=== PATIENT | male | born 1970 | race American Indian/Alaskan Native ===

== ENCOUNTER 2017-07-11 04:39 | Inpatient (IN) | payer OTHER ==
[2017-07-11] MEDS ORDERED: CATAPRES ONE (04:55)
[2017-07-11] MEDS ORDERED: CATAPRES PO ONE (04:57)
[2017-07-11 05:43] LABS: INR 0.93 (0.87-1.13); Partial Thromboplastin Time 25.2 Sec. (24.2-36.6)
[2017-07-11 05:59] LABS: Anion Gap TNR mmol/L; BUN/Creatinine Ratio TNR; Blood Urea Nitrogen TNR mg/dL (9-20); Calcium TNR mg/dL (8.4-10.2); Carbon Dioxide TNR mmol/L (22-30); Chloride TNR mmol/L (98-107); Glucose TNR mg/dL (75-100); Potassium TNR mmol/L (3.6-5.0); Sodium TNR mmol/L (137-145)
[2017-07-11 06:11] LABS: Hemoglobin 14.5 gm/dl (11.8-15.2); Mean Corpuscular HGB Conc 33 % (32-34); Mean Corpuscular Hemoglobin 27 pg (28-32); Mean Corpuscular Volume 82 fl (84-94); Platelet Count 181 K/mm3 (140-440); Red Blood Count 5.39 M/mm3 (3.65-5.03); Red Cell Distribution Width 14.5 % (13.2-15.2); White Blood Count 12.3 K/mm3 (4.5-11.0)
[2017-07-11 06:15] LABS: Basophils % (Auto) 0.5 % (0.0-1.8); Diff Status Complete; Eosinophils % (Auto) 2.8 % (0.0-4.3)
[2017-07-11 06:58] LABS: Anion Gap 19 mmol/L; BUN/Creatinine Ratio 12.22; Blood Urea Nitrogen 11 mg/dL (9-20); Calcium 8.9 mg/dL (8.4-10.2); Carbon Dioxide 27 mmol/L (22-30); Chloride 98.3 mmol/L (98-107); Glucose 160 mg/dL (75-100); Potassium 3.4 mmol/L (3.6-5.0); Sodium 141 mmol/L (137-145)
[2017-07-11] MEDS ORDERED: AFRIN NS ONE (07:39)
--- NOTE | 2017-07-11 07:42 | Emergency Department Report ---
ED ENT HPI - General Chief complaint: High BP Stated complaint: NOSEBLEED Time Seen by Provider: 07/11/17 07:32 Source: patient, family Mode of arrival: Ambulatory Limitations: No Limitations - History of Present Illness Initial comments: 26-year-old male with a past medical history hypertension presents to the hospital with complaints of epistaxis 3 hours. Bleeding from the right nostril. Patient has been noncompliant with his blood pressure medication times one year due to absence of insurance. He has been taking aspirin 81 mg and garlic daily. He denies any pain or recent trauma event. - Related Data Home Medications Medication Instructions Recorded Confirmed Last Taken Aspirin [Aspirin BABY CHEW TAB] 81 mg PO QDAY 07/11/17 07/11/17 07/10/17 Allergies Allergy/AdvReac Type Severity Reaction Status Date / Time No Known Allergies Allergy Verified 07/11/17 04:55 ED Dental HPI - General Chief complaint: High BP Stated complaint: NOSEBLEED Time Seen by Provider: 07/11/17 07:32 Source: patient, family Mode of arrival: Ambulatory Limitations: No Limitations - Related Data Home Medications Medication Instructions Recorded Confirmed Last Taken Aspirin [Aspirin BABY CHEW TAB] 81 mg PO QDAY 07/11/17 07/11/17 07/10/17 Allergies Allergy/AdvReac Type Severity Reaction Status Date / Time No Known Allergies Allergy Verified 07/11/17 04:55 ED Review of Systems ROS: Stated complaint: NOSEBLEED Other details as noted in HPI Comment: All other systems reviewed and negative Other: Constitutional: No fevers chills Eyes: No eye pain visual changes ENT: as per hpi Neck: Denies pain Respiratory: Denies cough wheezing shortness of breath Cardiovascular: Denies chest pain, palpitations, syncope GI: Denies abdominal pain, nausea, vomiting, diarrhea : Denies dysuria, urinary frequency, or urgency Musculoskeletal: Denies back pain, joint swelling Skin: Denies rash, lesions, erythema Neurologic: Denies headache, numbness, weakness Psychiatric: Denies suicidal ideation, hallucinations ED Past Medical Hx - Past Medical History Previous Medical History?: Yes Hx Hypertension: Yes Additional medical history: Obesity - Surgical History Past Surgical History?: No - Social History Smoking Status: Never Smoker Substance Use Type: None - Medications Home Medications: Home Medications Medication Instructions Recorded Confirmed Last Taken Type Aspirin [Aspirin BABY CHEW TAB] 81 mg PO QDAY 07/11/17 07/11/17 07/10/17 History ED Physical Exam - General Limitations: No Limitations - Other Other exam information: General: No limitations, patient is alert in no acute distress Head exam: Atraumatic, normocephalic Eyes exam: Normal appearance ENT: Active bleeding from right nostril Neck exam: Normal inspection, full range of motion, no meningismus nontender Respiratory exam: Clear to auscultation bilateral, no wheezes, rales, crackles Cardiovascular: Normal rate and rhythm, normal heart sounds Abdomen: Soft, nondistended, and nontender, with normal bowel sounds, no rebound, or guarding Extremity: Full range of motion normal inspection no deformity Back: Normal Inspection, full range of motion, no tenderness Neurologic: Alert, oriented x3, cranial nerves intact, no motor or sensory deficit Psychiatric: normal affect, normal mood Skin: Warm, dry, intact ED Course Vital Signs 07/11/17 07/11/17 07/11/17 04:56 05:33 05:35 Temperature 98.6 F Pulse Rate 130 H 130 H 111 H Respiratory 18 18 Rate Blood Pressure 217/124 217/124 184/116 O2 Sat by Pulse 97 99 Oximetry 07/11/17 07/11/17 07/11/17 08:19 08:40 08:50 Temperature 98.3 F Pulse Rate 127 H 117 H 85 Respiratory 19 18 18 Rate Blood Pressure 188/111 196/121 83/36 O2 Sat by Pulse 99 97 97 Oximetry 07/11/17 07/11/17 07/11/17 09:04 10:11 11:49 Temperature Pulse Rate 94 H 75 97 H Respiratory 17 Rate Blood Pressure 101/66 114/68 O2 Sat by Pulse 97 Oximetry - Reevaluation(s) Reevaluation #1: 07/11/17 07:42 Received clonidine 0.2 mg of 5:33 AM 07/11/17 09:02 After packing patient's blood pressure was 192/122 despite receiving clonidine graded 2 hours prior. Librium 10 mg IV. Patient's blood pressure then dropped to 106 systolic and a heart rate in the 80s. Patient complain of nausea and therefore Zofran ordered. Nurse brought to my attention and patient is diaphoretic and pressure dropped down to the 80s. Patient's head placed from a 90 to 45 angle with nasal packing in place. Patient's pressure then increased to 96 systolic. 1 L normal saline bolus ordered. 07/11/17 12:14 BP remained stable after 1 L normal saline. Systolic greater than 106. Patient was feeling better. Bleeding improved. - Consultations Consultation #1: 07/11/17 12:15 Cardiology (shea and attending) and informed and came by bedside to evaluate patient. Given EKG changes recommend admission, off, and repeat enzymes - Procedure Description Procedures done: 1 dose of Afrin sprayed to the right nostril. 7.5 cm rapid rhino Activated in sterile water for 30 seconds then placed in the right nare. Slowly inflatated with 14 mL of air. Bleeding improved. Secured to face with tape ED Medical Decision Making - Lab Data Result diagrams: 07/11/17 05:50 07/11/17 06:05 Lab Results 07/11/17 07/11/17 07/11/17 Range/Units 05:07 05:07 05:50 WBC 12.3 H (4.5-11.0) K/mm3 RBC 5.39 H (3.65-5.03) M/mm3 Hgb 14.5 (11.8-15.2) gm/dl Hct 44.0 (35.5-45.6) % MCV 82 L (84-94) fl MCH 27 L (28-32) pg MCHC 33 (32-34) % RDW 14.5 (13.2-15.2) % Plt Count 181 (140-440) K/mm3 Lymph % (Auto) 17.2 (13.4-35.0) % [place] % (Auto) 9.4 H (0.0-7.3) % Eos % (Auto) 2.8 (0.0-4.3) % Baso % (Auto) 0.5 (0.0-1.8) % Lymph # 2.1 (1.2-5.4) K/mm3 [place] # 1.2 H (0.0-0.8) K/mm3 Eos # 0.3 (0.0-0.4) K/mm3 Baso # 0.1 (0.0-0.1) K/mm3 Add Manual Diff Complete Seg Neutrophils % 70.1 H (40.0-70.0) % Seg Neutrophils # 8.6 H (1.8-7.7) K/mm3 PT 12.4 (12.2-14.9) Sec. INR 0.93 (0.87-1.13) APTT 25.2 (24.2-36.6) Sec. Sodium TNR Potassium TNR Chloride TNR Carbon Dioxide TNR Anion Gap TNR BUN TNR Creatinine TNR Estimated GFR TNR BUN/Creatinine Ratio TNR Glucose TNR Calcium TNR Troponin T TNR 07/11/17 07/11/17 07/11/17 Range/Units 06:05 08:02 10:36 WBC (4.5-11.0) K/mm3 RBC (3.65-5.03) M/mm3 Hgb (11.8-15.2) gm/dl Hct (35.5-45.6) % MCV (84-94) fl MCH (28-32) pg MCHC (32-34) % RDW (13.2-15.2) % Plt Count (140-440) K/mm3 Lymph % (Auto) (13.4-35.0) % [place] % (Auto) (0.0-7.3) % Eos % (Auto) (0.0-4.3) % Baso % (Auto) (0.0-1.8) % Lymph # (1.2-5.4) K/mm3 [place] # (0.0-0.8) K/mm3 Eos # (0.0-0.4) K/mm3 Baso # (0.0-0.1) K/mm3 Add Manual Diff Seg Neutrophils % (40.0-70.0) % Seg Neutrophils # (1.8-7.7) K/mm3 PT (12.2-14.9) Sec. INR (0.87-1.13) APTT (24.2-36.6) Sec. Sodium 141 Potassium 3.4 L Chloride 98.3 Carbon Dioxide 27 Anion Gap 19 BUN 11 Creatinine 0.9 Estimated GFR > 60 BUN/Creatinine Ratio 12.22 Glucose 160 H Calcium 8.9 Troponin T < 0.010 < 0.010 - EKG Data -: EKG Interpreted by Me (sinus rate 124, flat ant lat t waves, no stem) - EKG Data 07/11/17 12:21 repeat ekg:sinus rate 99 inf lat t wave inversions - Medical Decision Making will admit for obs given ekg changes cardiolgy consulted rec monitoring and repeat enzymes pt will need continued bp managment pt will need to hold asa and garlic pt will need abx daily while he has nasal packing packing needs to be in place for 48-72 hrs - Differential Diagnosis epistaxis, coagulopathy, hypertensive emergency Critical Care Time: No Critical care attestation.: If time is entered above; I have spent that time in minutes in the direct care of this critically ill patient, excluding procedure time. ED Disposition Clinical Impression: Epistaxis, Uncontrolled hypertension, Noncompliance with medication regimen, Acute electrocardiogram changes Disposition: OP ADMIT IP TO THIS HOSP Is pt being admited?: Yes Condition: Stable Time of Disposition: 12:23 (Dr hummel/hosp)
[2017-07-11] MEDS ORDERED: WATER FOR IRRIG STERILE IR ONE (08:00)
[2017-07-11] MEDS ORDERED: WATER FOR INJ (PF) 10 ML ONE (08:11)
[2017-07-11] MEDS ORDERED: NORMODYNE IV ONE (08:32)
[2017-07-11] MEDS ORDERED: ZOFRAN IV ONE (08:51)
[2017-07-11] MEDS ORDERED: NACL 0.9% 1000 ML 1,000 ML ONE (09:01)
[2017-07-11] MEDS ORDERED: NACL 0.9% 1000 ML 1,000 ML IV ONE (09:02)
--- NOTE | 2017-07-11 12:13 | History and Physical Report ---
History of Present Illness Chief complaint: My nose is bleeding History of present illness: 46 YO Male with HTN, Medication Noncompliance Obesity presents to ED for evaluation. Pt states that he has experienced "nose bleeding' from the right nostril for the past 3 hours, with no improvement in symptoms. Pt denies HUGHES, fever, chills, CP, Palpitations, NVD, Seizures, Trauma, or recent ill contacts. Pt seen and evaluated in ED and found and found to have blood pressure of 217/ 124. Pt treated in ED with placement of rhino-rocket with improvement in epistaxis. 2 Past History Past Medical History: hypertension Past Surgical History: No surgical history, Other (reviewed) Social history: single. denies: smoking, alcohol abuse, prescription drug abuse Family history: hypertension Medications and Allergies Allergies Allergy/AdvReac Type Severity Reaction Status Date / Time No Known Allergies Allergy Verified 07/11/17 04:55 Home Medications Medication Instructions Recorded Confirmed Last Taken Type Aspirin [Aspirin BABY CHEW TAB] 81 mg PO QDAY 07/11/17 07/11/17 07/10/17 History Review of Systems Constitutional: other (nose bleeding), no weight loss, no weight gain, no fever Ears, nose, mouth and throat: no ear pain, no ear discharge, no tinnitis Cardiovascular: no chest pain, no orthopnea, no palpitations Respiratory: no cough, no cough with sputum, no excessive sputum, no hemoptysis Gastrointestinal: no abdominal pain, no nausea, no vomiting, no diarrhea Genitourinary Male: no dysuria, no flank pain, no discharge, no urinary frequency Rectal: no pain, no incontinence, no bleeding Musculoskeletal: no neck stiffness, no neck pain, no shooting arm pain, no arm numbness/tingling Integumentary: no rash, no pruritis, no redness Neurological: no head injury, no transient paralysis, no paralysis, no parathesias, no numbness, no tingling, no migraines, no aphasia, no confusion Psychiatric: no anxiety, no memory loss, no change in sleep habits, no sleep disturbances, no hypersomnia, no change in appetite, no change in libido Endocrine: no cold intolerance, no polyphagia, no polydipsia, no nocturia, no excessive sweating Hematologic/Lymphatic: no easy bruising, no easy bleeding Allergic/Immunologic: no urticaria, no allergic rhinitis, no wheezing Exam - Constitutional Vitals: Temp Pulse Resp BP Pulse Ox 98.3 F 97 H 17 114/68 97 07/11/17 08:19 07/11/17 11:49 07/11/17 11:49 07/11/17 11:49 07/11/17 11:49 General appearance: Present: mild distress, obese - EENT Eyes: Present: PERRL ENT: other (epistaxis) - Neck Neck: Present: supple, normal ROM - Respiratory Respiratory effort: normal Respiratory: bilateral: CTA - Cardiovascular Heart Sounds: Present: S1 & S2. Absent: rub, click - Extremities Extremities: pulses symmetrical, No edema Peripheral Pulses: within normal limits - Abdominal General gastrointestinal: Present: soft, non-tender, non-distended, normal bowel sounds Male genitourinary: Present: normal - Integumentary Integumentary: Present: clear, warm, dry - Musculoskeletal Musculoskeletal: gait normal, strength equal bilaterally - Psychiatric Psychiatric: appropriate mood/affect, intact judgment & insight - Neurologic Neurologic: CNII-XII intact, moves all extremities Results - Labs CBC & Chem 7: 07/11/17 14:36 07/11/17 14:36 Labs: Abnormal lab results 07/11/17 07/11/17 Range/Units 05:50 06:05 WBC 12.3 H (4.5-11.0) K/mm3 RBC 5.39 H (3.65-5.03) M/mm3 MCV 82 L (84-94) fl MCH 27 L (28-32) pg [place] % (Auto) 9.4 H (0.0-7.3) % [place] # 1.2 H (0.0-0.8) K/mm3 Seg Neutrophils % 70.1 H (40.0-70.0) % Seg Neutrophils # 8.6 H (1.8-7.7) K/mm3 Potassium 3.4 L (3.6-5.0) mmol/L Glucose 160 H (75-100) mg/dL Assessment and Plan - Patient Problems (1) Uncontrolled hypertension Current Visit: Yes Status: Acute Plan to address problem: Hydralazine prn, monitor bp q shift, supportive care. (2) Epistaxis Current Visit: Yes Status: Acute Plan to address problem: Rhino rocket in place, supportive care. (3) Noncompliance with medication regimen Current Visit: Yes Status: Acute Plan to address problem: Pt counseled (4) DVT prophylaxis Current Visit: Yes Status: Acute
--- NOTE | 2017-07-11 12:46 | Consultation ---
History of Present Illness Consult date: 07/11/17 Requesting physician: ARLINE MARION Consult reason: other (abnormal EKG) History of present illness: The pt is a 46 YO male with a past medical history significant for HTN and inguinal hernia (s/p hernia surgery 20 years ago per pt report). He is previously unknown to our practice. 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 He also reports an episode of epistaxis yesterday. Patient has been noncompliant with his blood pressure medication for the past one year due to absence of insurance. He has been taking aspirin 81 mg and garlic daily. He denies any pain or recent trauma event. In ED, pt's BP was noted 217/124 and he was given clonidine. Admission EKG showed ST. BPs remained elevated and then pt was given Librium 10 mg IV. Patient's blood pressure then dropped to 106 systolic and a heart rate in the 80s. Patient then developed nausea and diaphoresis and SBP dropped into 80s. BPs improved following 1L NS bolus and repositioning. Repeat EKG showed SR with new t-wave inversions in inferolateral leads and thus cardiology has been consulted. On evaluation, pt denies any cardiac complaints or prior cardiac history. Troponins are negative for AMI x 2 sets. Past History Past Medical History: hyperlipidemia Past Surgical History: hernia repair Social history: denies: smoking, alcohol abuse, prescription drug abuse Medications and Allergies Allergies Allergy/AdvReac Type Severity Reaction Status Date / Time No Known Allergies Allergy Verified 07/11/17 04:55 Home Medications Medication Instructions Recorded Confirmed Last Taken Type Aspirin [Aspirin BABY CHEW TAB] 81 mg PO QDAY 07/11/17 07/11/17 07/10/17 History Review of Systems Constitutional: no weight loss, no weight gain, no fever, no chills, no sweats Ears, nose, mouth and throat: epistaxis, no ear pain, no nose pain, no sinus pain Respiratory: no cough, no shortness of breath, no dyspnea on exertion, no congestion, no wheezing, no pain on inspiration Gastrointestinal: no abdominal pain, no nausea, no vomiting, no diarrhea, no constipation, no change in bowel habits Genitourinary Male: no dysuria, no flank pain, no discharge, no urinary frequency, no urinary hesitancy Musculoskeletal: no neck stiffness, no neck pain, no shooting arm pain, no arm numbness/tingling, no low back pain, no shooting leg pain, no leg numbness/ tingling, no redness of joints Integumentary: no rash, no pruritis, no redness, no sores, no wounds Neurological: no head injury, no paralysis, no weakness, no parathesias, no numbness, no tingling, no seizures, no syncope Psychiatric: no anxiety Endocrine: no cold intolerance, no heat intolerance Hematologic/Lymphatic: no easy bruising, no easy bleeding, no lymphadenopathy Allergic/Immunologic: no urticaria, no wheezing, no persistent infections Physical Examination Vital Signs Temp Pulse Resp BP Pulse Ox 98.6 F 130 H 18 217/124 97 07/11/17 04:56 07/11/17 04:56 07/11/17 04:56 07/11/17 04:56 07/11/17 04:56 General appearance: no acute distress HEENT: Positive: PERRL, Normocephaly, Mucus Membranes Moist, Other (epistaxis noted ) Neck: Positive: neck supple, trachea midline Cardiac: Positive: Reg Rate and Rhythm, S1/S2 Lungs: Positive: Normal Exam, clear to auscultation, Normal Breath Sounds Neuro: Positive: Grossly Intact, Cranial Nerve 2-12 Intact Abdomen: Positive: Unremarkable, Soft, Active Bowel Sounds. Negative: Tender Skin: Positive: Clear. Negative: Rash, Wound Musculoskeletal: No Fluid Collection, No Pain, Normal Range of Motion Extremities: Absent: edema Results 07/11/17 05:50 07/11/17 06:05 Coagulation 07/11/17 Range/Units 05:07 PT 12.4 (12.2-14.9) Sec. INR 0.93 (0.87-1.13) APTT 25.2 (24.2-36.6) Sec. CBC 07/11/17 Range/Units 05:50 WBC 12.3 H (4.5-11.0) K/mm3 RBC 5.39 H (3.65-5.03) M/mm3 Hgb 14.5 (11.8-15.2) gm/dl Hct 44.0 (35.5-45.6) % Plt Count 181 (140-440) K/mm3 Lymph # 2.1 (1.2-5.4) K/mm3 [place] # 1.2 H (0.0-0.8) K/mm3 Eos # 0.3 (0.0-0.4) K/mm3 Baso # 0.1 (0.0-0.1) K/mm3 Comprehensive Metabolic Panel 07/11/17 07/11/17 Range/Units 05:07 06:05 Sodium TNR 141 Potassium TNR 3.4 L Chloride TNR 98.3 Carbon Dioxide TNR 27 BUN TNR 11 Creatinine TNR 0.9 Glucose TNR 160 H Calcium TNR 8.9 - Imaging and Cardiology EKG: image reviewed EKG interpretations - Telemetry EKG Rhythm: Sinus Tachycardia - EKG Sinus rhythms and dysrhythmias: sinus tachycardia Repolarization changes or abnormalities: ST or T wave suggestive of ischemia ( inferolateral) Assessment and Plan Assessment: Abnormal EKG Uncontrolled HTN Epistaxis - H/H stable. Plan: Recommend that pt be admitted per hospitalists for overnight observation. Continue telemetry. Obtain 3rd set of Amy. BP optimization per primary. Repeat 12-lead ECG in AM. Assessment and plan reviewed with pt at bedside. The patient has been seen in conjunction with Dr. Sin who agrees with the assessment and plan of care.
--- NOTE | 2017-07-11 13:01 | Admit Criteria Form ---
Admission Criteria Documentation: EPISTAXIS Clinical Indications for Admission to Inpatient Care ( Place 'X' for any and all applicable criteria): Hospital admission is needed for appropriate care of the patient because of ANY ONE of the following [ X]I. Severe epistaxis requiring posterior packing (5)(6) [ ]II. Acute glaucoma unresponsive to emergency treatment that requires IV medication or other treatment beyond the scope observation care (1) [ ]III. Severe eye infection or inflammation (eg, uveitis) requiring IV medication such as IV acyclovir for acute retinal necrosis syndrome (1)(2)(3)(4) [ ]IV. Acute bacterial labyrinthitis(6)(7) [ ]V. Viral labyrinthitis with symptoms uncontrollable on an outpatient or observation care basis (6)(7) [ ]. Severe necrotizing external otitis unresponsive to outpatient and observation care treatment (6) [ ]VII. Otitis media requiring treatment beyond the scope of outpatient and observation care, as indicated by presence or persistence of ANY ONE of the following(6)(8)(9): [ ]a) Mastoiditis [ ]b) Suspected COMPUTER REPAIR INSTRUCTOR infection [ ]c) Bacteremia [ ]d) Hemodynamic instability remaining after emergency or observation level care (as appropriate) [ ]e) Surgical drainage needed that cannot be performed as an outpatient or in an observation setting (10) [ ]VIII. Epiglottitis or supraglottitis(6)(11)(12)(13)(14) [ ]IX. Stridor or laryngospasm (unresponsive to emergency management) (6)(11)( 12)(13)(14) [ ]X. Airway blockage or inability to swallow (6)(12)(19)(20) [ ]XI. Severe sinusitis as indicated by ANY ONE of the following (6)(13)(21) [ ]a) Suspected COMPUTER REPAIR INSTRUCTOR infection [ ]b) Bacteremia [ ]c) Hemodynamic instability remaining after emergency or observation level care (as appropriate) [ ]d) Outpatient and observation care antibiotic treatment have failed or are not considered appropriate [ ]e) Surgical drainage needed that cannot be performed on an outpatient basis or observation setting [ ]f) Suspected orbital involvement [ ]XII. Complicated infections; examples include (6)(13)(21)(22) [ ]a) Abscess or swelling causing airway difficulty(12) [ ]b) Bacteremia [ ]c) Hemodynamic instability remaining after emergency or observation level care (as appropriate) [ ]d) Suspected COMPUTER REPAIR INSTRUCTOR spread [ ]e) Outpatient and observation care antibiotic treatment. have failed or are not considered appropriate [ ]f) Surgical drainage needed that cannot be performed on an outpatient basis or observation setting [ ]g) Other management need that cannot be performed in outpatient or observation setting [ ]XIII. Severe trauma requiring inpatient medical treatment of eye, head, pharynx, or airway (1)(23)(24)(25)(26) [ ]XIV. Acute pharyngitis or tonsillitis and ANY ONE of the following (14)(15)( 16): [ ]a) Hemodynamic instability remaining after emergency or observation level of care (as appropriate) [ ]b) Surgical drainage needed that cannot be performed in outpatient or observation setting [ ]c) Mediastinitis [ ]d) Thrombophlebitis of internal jugular vein (Lemierre syndrome) [ ]XV. Sialoadenitis and ANY ONE of the following (17)(18) [ ]a) Hemodynamic instability remaining after emergency or observation level care (as appropriate) [ ]b) Surgical drainage needed that cannot be performed in outpatient or observation setting [ ]XVI. Ischemic optic neuropathy(11) [ ]XVII.Head or Neck Disease and ALL of the following: [ ]a) Symptom or finding for which emergency and observation care have failed or are not considered appropriate (Also use General Criteria: Observation Care Form as appropriate) [ ]b) Presence of ANY ONE of the following: [ ]i) A General Admission Criteria [ ]ii) A Pediatric General Admission Criteria (Contents from HEAD and NECK DISEASE clinical indications for admission to inpatient care have been integrated in this form) The original [facility] content created by [facility] has been revised. The portions of the content which have been revised are identified through the use of italic text or in bold, and [facility] has neither reviewed nor approved the modified material. All other unmodified content is copyright [facility]. Please see references footnoted in the original [facility] edition 2016 Admission Criteria Met: Yes
[2017-07-11] MEDS ORDERED: MILK OF MAGNESIA PO PRN (13:41)
[2017-07-11] MEDS ORDERED: PROVENTIL IH PRN (13:41)
[2017-07-11] MEDS ORDERED: TYLENOL PO PRN (13:41)
[2017-07-11] MEDS ORDERED: ZOFRAN IV PRN (13:41)
[2017-07-11] MEDS ORDERED: SODIUM CHLORIDE FLUSH SYRINGE 10 ML IV PRN (13:44)
[2017-07-11] MEDS ORDERED: DULCOLAX PR PRN (14:12)
[2017-07-11 15:10] LABS: Basophils % (Auto) 0.2 % (0.0-1.8); Eosinophils % (Auto) 0.1 % (0.0-4.3); Hematocrit 38.8 % (35.5-45.6); Hemoglobin 12.8 gm/dl (11.8-15.2); Mean Corpuscular HGB Conc 33 % (32-34); Mean Corpuscular Hemoglobin 27 pg (28-32); Mean Corpuscular Volume 81 fl (84-94); Platelet Count 199 K/mm3 (140-440); Red Blood Count 4.78 M/mm3 (3.65-5.03); Red Cell Distribution Width 14.3 % (13.2-15.2)
[2017-07-11 15:14] LABS: Anion Gap 19 mmol/L; BUN/Creatinine Ratio 26.66; Blood Urea Nitrogen 24 mg/dL (9-20); Calcium 8.7 mg/dL (8.4-10.2); Carbon Dioxide 25 mmol/L (22-30); Chloride 102.2 mmol/L (98-107); Glucose 159 mg/dL (75-100); Potassium 4.7 mmol/L (3.6-5.0); Sodium 141 mmol/L (137-145)
[2017-07-11 15:15] LABS: Creatine Kinase MB 4.2 ng/mL (0.0-4.0)
[2017-07-11 15:17] LABS: Creatine Kinase 362 units/L (55-170)
[2017-07-11] MEDS ORDERED: APRESOLINE IV PRN (19:09)
[2017-07-12] MEDS ORDERED: NORVASC PO SCH (10:00)
--- NOTE | 2017-07-12 10:43 | Progress Note ---
Assessment and Plan Assessment: Abnormal EKG - resolved Uncontrolled HTN - improving. Epistaxis - resolved; H/H stable. Plan: Amy remained negative for AMI overnight. Repeat 12-lead ECG this AM showed resolution of inferolateral t-wave inversions. BP optimization per primary. Currently stable cardiac status. Pt may discharge home from cardiology standpoint. Recommend pt to follow up in our office with Mariella Patterson NP, within 1-2 weeks of hospital discharge ([phone]). Assessment and plan reviewed with pt at bedside. The patient has been seen in conjunction with Dr. Sin who agrees with the assessment and plan of care. Subjective Date of service: 07/12/17 Principal diagnosis: epistaxis Interval history: Pt resting comfortably in bed, denies any complaints. Epistaxis has resolved. BPs slightly elevated. Objective Last Vital Signs Temp 98.0 F 07/12/17 07:50 Pulse 95 H 07/12/17 09:22 Resp 20 07/12/17 07:50 BP 151/97 07/12/17 07:50 Pulse Ox 95 07/12/17 08:35 - Physical Examination General: Appears Well HEENT: Positive: PERRL, Normocephaly, Mucus Membranes Moist Neck: Positive: neck supple, trachea midline Cardiac: Positive: Reg Rate and Rhythm, S1/S2 Lungs: Positive: clear to auscultation Neuro: Positive: Grossly Intact, Cranial Nerve 2-12 Intact Abdomen: Positive: Unremarkable, Soft, Active Bowel Sounds. Negative: Tender Skin: Positive: Clear. Negative: Rash, Wound Musculoskeletal: No Fluid Collection, No Pain, Normal Range of Motion Extremities: Absent: edema - Labs and Meds Cardiac Enzymes 07/11/17 Range/Units 14:36 CK-MB (CK-2) 4.2 H (0.0-4.0) ng/mL CBC 07/11/17 Range/Units 14:36 WBC 17.0 H (4.5-11.0) K/mm3 RBC 4.78 (3.65-5.03) M/mm3 Hgb 12.8 (11.8-15.2) gm/dl Hct 38.8 (35.5-45.6) % Plt Count 199 (140-440) K/mm3 Lymph # 1.7 (1.2-5.4) K/mm3 [place] # 0.9 H (0.0-0.8) K/mm3 Eos # 0.0 (0.0-0.4) K/mm3 Baso # 0.0 (0.0-0.1) K/mm3 Comprehensive Metabolic Panel 07/11/17 Range/Units 14:36 Sodium 141 (137-145) mmol/L Potassium 4.7 D (3.6-5.0) mmol/L Chloride 102.2 (98-107) mmol/L Carbon Dioxide 25 (22-30) mmol/L BUN 24 H (9-20) mg/dL Creatinine 0.9 (0.8-1.5) mg/dL Glucose 159 H (75-100) mg/dL Calcium 8.7 (8.4-10.2) mg/dL - Imaging and Cardiology EKG: image reviewed - Telemetry EKG Rhythm: Sinus Rhythm - EKG Sinus rhythms and dysrhythmias: sinus tachycardia Repolarization changes or abnormalities: ST or T wave suggestive of ischemia ( inferolateral)
--- NOTE | 2017-07-12 10:54 | Discharge Summary ---
Providers - Providers Date of Admission: 07/11/17 13:41 Attending physician: NORBERTO HOLMAN MD Primary care physician: VICE PRESIDENT [employer] Hospitalization Reason for admission: hypertensive urgency, abnormal EKG Condition: Stable Hospital course: Admission H&P 46 YO Male with HTN, Medication Noncompliance, Obesity presents to ED for evaluation. Pt states that he has experienced "nose bleeding' from the right nostril for the past 3 hours, with no improvement in symptoms. Pt denies HUGHES, fever, chills, CP, Palpitations, NVD, Seizures, Trauma, or recent ill contacts. Pt seen and evaluated in ED and found and found to have blood pressure of 217/ 124. Pt treated in ED with placement of rhino-rocket with improvement in epistaxis. Patient admitted to the floor for further management. Patient didn't have any further epistaxis. Patient was started with blood pressure medications which controlled her blood pressure. "Cardiology consulted and here is their recommendations: Amy remained negative for AMI overnight. Repeat 12-lead ECG this AM showed resolution of inferolateral t-wave inversions. BP optimization per primary. Currently stable cardiac status. Pt may discharge home from cardiology standpoint. Recommend pt to follow up in our office with Fanta Stuatr NP, within 1-2 weeks of hospital discharge ([phone]). Assessment and plan reviewed with pt at bedside. " Patient was hemodynamically stable at the time of discharge. He was given vitamin supplement his blood pressure medication. Patient's questions and concerns were addressed at the bedside. Patient was counseled about medication adherence and follow up with primary care physician. Disposition: - TO HOME OR SELFCARE Time spent for discharge: 31 minutes - Discharge Diagnoses (1) Acute electrocardiogram changes Status: Acute (2) Epistaxis Status: Acute (3) Noncompliance with medication regimen Status: Acute (4) Uncontrolled hypertension Status: Acute Core Measure Documentation - Palliative Care Palliative Care/ Comfort Measures: Not Applicable - Core Measures Any of the following diagnoses?: none Exam - Physical Exam Narrative exam: Not in cardiopulmonary distress. The patient is obese. Vital signs as documented. Head exam is unremarkable. No scleral icterus . Neck is without jugular venous distension, thyromegaly, or carotid bruits. Lungs are clear to auscultation. Cardiac exam reveals regular rate and Rhythm. First and second heart sounds normal. No murmurs, rubs or gallops. Abdominal exam reveals normal bowel sounds, no masses, no organomegaly and no aortic enlargement. Extremities are nonedematous and both femoral and pedal pulses are normal. WORKING MANAGER: Alert and oriented 3. No focal weakness. - Constitutional Vitals: Temp Pulse Resp BP Pulse Ox 98.0 F 95 H 20 151/97 95 07/12/17 07:50 07/12/17 09:22 07/12/17 07:50 07/12/17 07:50 07/12/17 08:35 Plan Activity: no restrictions Weight Bearing Status: Full Weight Bearing Diet: low cholesterol, low salt Follow up with: PRIMARY CARE, [Primary Care Provider] - 3-5 Days FANTA STUART NP [Advanced Practice Nurse] - 7 Days Prescriptions: amLODIPine [Norvasc] 10 mg PO QDAY #30 tablet Hydrochlorothiazide [HCTZ] 25 mg PO QDAY #30 tablet
[2017-07-12 15:04] VITALS: BP 126/99
== END 2017-07-12 15:39 | disposition home or self-care (01) | DRG 305 ==
LOC: ED 04:39 → 4A 13:41
PROVIDERS: ADMIT Internal Medicine; ATTEND Internal Medicine
DX: I16.0 Hypertensive urgency (principal); R04.0 Epistaxis; I10 Essential (primary) hypertension; E66.9 Obesity, unspecified; R94.31 Abnormal electrocardiogram [ECG] [EKG]; Z91.14 Patient's other noncompliance with medication regimen; Z68.35 Body mass index [BMI] 35.0-35.9, adult; Z82.49 Family history of ischemic heart disease and other diseases of the circulatory system; Z71.89 Other specified counseling
CPT/HCPCS: 36415; 80048; 82550; 82553; 84484; 85025; 85610; 85730; 93005; 93010; 96361; 96374; 96375; J2405; J7030